=== PATIENT | male | born 1945 | race Caucasian/White ===

== ENCOUNTER → 2016-03-14 | Day surgery (SDC) | payer BC ==
--- NOTE | 2016-03-01 09:05 | PAT Medication Instructions ---
Service Date Mar 01, 2016. Current Home Medication List Alprazolam (Alprazolam), 0.5 MG PO QPM PRN for RN Aspirin Enteric Coated (Ecotrin Or Generic *), 81 MG PO QPM Atorvastatin (Lipitor), 80 MG PO QAM Cholecalciferol (Vitamin D3), 1 TAB PO DAILY Clopidogrel (Plavix), 75 MG PO QAM Coenzyme Q10 (Ubidecarenone) (Co Q-10), 1 CAP PO QAM Finasteride (Proscar), 5 MG PO QAM Fish Oil (Auburn-3), 2 CAP PO QAM Nfhxbmbuuuq-Wfdtuiwyxtm-Ymp C- (Glucosamine Chondroitin), 2 TAB PO QAM Hctz/Spironolactone 25MG/25MG (Aldactazide 25MG/25MG), 1 TAB PO QAM Lifitegrast (Xiidra), 1 DROP OPB QAM Magnesium (Magnesium), 1 TAB PO DAILY Mometasone Furoate (Nasonex), 1 SPRAY NA PRN Naproxen (Aleve), 40 MG PO QAM Nebivolol Hcl (Bystolic), 5 MG PO BID Pantoprazole (Protonix), 40 MG PO QAM Tadalafil (Cialis), 5 MG PEG QPM Testosterone (Androgel), 1 DOSE TOP BID Valsartan (Diovan), 80 MG PO QAM Medication Instructions For Your Scheduled Surgery Aspirin Enteric Coated (Ecotrin Or Generic *), 81 MG PO QPM (surgeon should call you with instructions) Clopidogrel (Plavix), 75 MG PO QAM (stop 7 days prior to surgery per surgeon instructions) - Hold the following medications 10 days prior to surgery: Fish Oil (Auburn-3), 2 CAP PO QAM Yiqsbyirwrx-Dputiplhyky-Dun C- (Glucosamine Chondroitin), 2 TAB PO QAM Coenzyme Q10 (Ubidecarenone) (Co Q-10), 1 CAP PO QAM - Hold the following medications the morning of surgery: Valsartan (Diovan), 80 MG PO QAM Testosterone (Androgel), 1 DOSE TOP BID Hctz/Spironolactone 25MG/25MG (Aldactazide 25MG/25MG), 1 TAB PO QAM Naproxen (Aleve), 40 MG PO QAM (not told to stop by surgeon) Vitamin D Magnesium - Take the following medications the morning of surgery with a sip of water: Pantoprazole (Protonix), 40 MG PO QAM Nebivolol Hcl (Bystolic), 5 MG PO BID Mometasone Furoate (Nasonex), 1 SPRAY NA PRN (if needed) Atorvastatin (Lipitor), 80 MG PO QAM Finasteride (Proscar), 5 MG PO QAM Lifitegrast (Xiidra), 1 DROP OPB QAM - Take the following medications as scheduled the night before surgery: Testosterone (Androgel), 1 DOSE TOP BID Tadalafil (Cialis), 5 MG PEG QPM Nebivolol Hcl (Bystolic), 5 MG PO BID Alprazolam (Alprazolam), 0.5 MG PO QPM PRN for RN If you have any questions please call us at [phone] or [phone] ( [place]) or [phone]
[2016-03-01 09:34] LABS: BASO % 0.5 %; BASO ABS # 0.03 K/uL (0-0.2); COMPLETE YES; EOS % 2.2 %; HEMATOCRIT 42.7 % (42-52); IG% 0.2 %; LYMPH % 20.9 %; LYMPH ABS # 1.26 K/uL (1.2-3.4); MEAN CELL VOLUME 88.6 fL (80-100); MEAN CORPUSCULAR HEMOGLOBIN 31.5 pg (25-34); MEAN CORPUSCULAR HGB CONC 35.6 g/dl (32-36); MEAN PLATELET VOLUME 9.4 fL (7.4-10.4); NEUT % 69.2 %; PLATELET COUNT 112 K/uL (130-400); RED BLOOD COUNT 4.82 M/uL (4.7-6.1); WHITE BLOOD COUNT 6.04 K/uL (4.8-10.8)
[2016-03-01 09:43] LABS: INR 1.1 (0.9-1.1); PROTHROMBIN TIME (PATIENT) 11.4 SECONDS (9.0-12.0)
[2016-03-01 09:58] LABS: BUN/CREATININE RATIO 16.7 (10-20); CALCIUM 8.8 mg/dl (8.5-10.1); CREATININE 1.8 mg/dl (0.60-1.40); POTASSIUM 4.6 mmol/L (3.5-5.1)
[~2016-03-14] VITALS: Ht 180.3 cm; Wt 99.9 kg
[~2016-03-14] MED LIST: ANDG TOP; ASPEC81 PO; ATOR-26 PO; ATROPINE SULFATE 0.1 MG/ML 5ML SYR IV PRN; BUPIVACAINE/EPINEPHRINE 0.5% MPF 1:200,000 30 ML VIAL INJ ONE; CEFAZOLIN 2000 MG/60 ML D5W IV SCH; CHOL1000 PO; CLOP1TAB15 PO; COEN75CA PO; DEXAMETHASONE SOD INJ 4 MG/ML VIAL ONE; DVN80 PO; EpHEDrine SULFATE INJ 50 MG/ML AMP IV PRN; FENTANYL CITRATE INJ 50 MCG/1 ML 2 ML VIAL IV PRN; FENTANYL CITRATE INJ 50 MCG/1 ML 2 ML VIAL ONE; FINA5TAB PO; GLUCTAB7 PO; HEPARIN SOD 5000 UNIT/0.5 ML CARP SQ SCH; HYDR-5688 PO; HYDROCODONE/ACETAMOPHEN 5/325MG TAB PO PRN; LACTATED RINGER'S 1000ML 1,000 ML IV SCH; LIDOCAINE HCL 2% 2 ML VIAL (20MG/ML) ONE; LIFI5DRO OPB; MAGN250T9 PO; MIDAZOLAM HCL 1 MG/ML 2ML VIAL ONE; MOME50SP5; MoRPHine SULFATE 10 MG/ML CARP/VIAL IV PRN; MoRPHine SULFATE 4 MG/ML 1 ML CARP\\VIAL IV PRN; NAPR1TAB9 PO; NEBI10TA2 PO; OMEG10007 PO; ONDANSETRON INJ 2 MG/ML 2 ML VIAL IV PRN; ONDANSETRON INJ 2 MG/ML 2 ML VIAL ONE; PANT40TA PO; PROPOFOL IV EMULSION 10 MG/ML 20 ML VIAL IV ONE; SODIUM CHLORIDE 0.9% 1000ML 1,000 ML IV SCH; SPIR50TA PO; TADA10TA PEG; XNX5 PO
[2016-03-14 08:05] VITALS: BP 159/93; PULSE 68; TEMP 37; O2SAT 97; Ht 180.3 cm; Wt 99.9 kg
--- NOTE | 2016-03-14 09:24 | History & Physical Bridge Note ---
H&P Re-Evaluation Bridge Note: I have examined the patient, reviewed the History & Physical and in the interval since the performance of the History & Physical I have noted the following changes of clinical significance: No changes noted
--- NOTE | 2016-03-14 09:29 | Discharge Instructions ---
Discharge Instructions Admission Reason for Admission: Left Inguinal Hernia Discharge Discharge Diagnosis / Problem: left inguinal hernia Discharge Goals Goal(s): Decrease discomfort, Improve function Activity Recommendations Activity Limitations: as noted below Lifting Limitations: no more than 10 pounds Exercise/Sports Limitations: until after follow-up appointment May Resume Sexual Activity: after follow-up appointment Shower/Bathe: tomorrow . Instructions / Follow-Up Instructions / Follow-Up f/u Dr. Bruce in 1-2 weeks. Current Hospital Diet Patient's current hospital diet: Discharge Diet Recommended Diet: Regular Diet Pending Studies Studies pending at discharge: no Laboratory Results Hemoglobin A1c Test 12/21/15 10:03 Range/Units Estimated Average Glucose 114 mg/dl Hemoglobin A1c 5.6 4.5-5.6 % Medical Emergencies . Who to Call and When: Medical Emergencies: If at any time you feel your situation is an emergency, please call 911 immediately. . Non-Emergent Contact Non-Emergency issues call your: Primary Care Provider, Surgeon Call Non-Emergent contact if: temperature is above 101, wound has increased drainage, wound has increased redness, wound has increased pain . "Provider Documentation" section prepared by Michele Bruce. VTE Core Measure Inpt VTE Proph given/why not?: Unfractionated heparin SQ, SCD's
--- NOTE | 2016-03-14 11:29 | Discharge Instructions ---
Discharge Instructions Admission Reason for Admission: Left Inguinal Hernia Discharge Discharge Diagnosis / Problem: left inguinal hernia Discharge Goals Goal(s): Decrease discomfort, Improve function Activity Recommendations Activity Limitations: as noted below Lifting Limitations: no more than 10 pounds Exercise/Sports Limitations: until after follow-up appointment May Resume Sexual Activity: after follow-up appointment f/u dr. bruce in 1-2 weeks. . Current Hospital Diet Patient's current hospital diet: Discharge Diet Recommended Diet: Regular Diet Procedures Procedures Performed: Left Open Inguinal Hernia Repair with Mesh Pending Studies Studies pending at discharge: no Laboratory Results Hemoglobin A1c Test 12/21/15 10:03 Range/Units Estimated Average Glucose 114 mg/dl Hemoglobin A1c 5.6 4.5-5.6 % Medical Emergencies . Who to Call and When: Medical Emergencies: If at any time you feel your situation is an emergency, please call 911 immediately. . Non-Emergent Contact Non-Emergency issues call your: Primary Care Provider, Surgeon Call Non-Emergent contact if: temperature is above 101, wound has increased drainage, wound has increased redness, wound has increased pain . "Provider Documentation" section prepared by Michele Bruce. VTE Core Measure Inpt VTE Proph given/why not?: Unfractionated heparin SQ, SCD's
--- NOTE | 2016-03-14 11:30 | Medical Student: [facility] ---
Immediate Operative Summary Operative Date Mar 14, 2016. Pre-Operative Diagnosis Left-sided inguinal hernia Post-Operative Diagnosis Same Procedure(s) Performed Zach tension-free mesh repair of left-sided inguinal hernia Surgeon Michele Bruce DO [employer] Surgeon(s) None Estimated Blood Loss 20mL Findings Left-sided direct and indirect inguinal hernias Specimens None Drains 200mL via Campbell catheter Anesthesia General anesthesia via laryngeal mask airway Complication(s) None Disposition Recovery Room / PACU
--- NOTE | 2016-03-14 11:30 | [facility] Operative Report ---
Operative Report Operative Date Mar 14, 2016. Pre-Operative Diagnosis Left Inguinal Hernia Post-Operative Diagnosis left direct and indirect inguinal hernia Surgeon Dr Bruce Estimated Blood Loss 20ML Findings direct and indirect left inguinal hernias Specimens None Complication(s) None Disposition Recovery Room / PACU I attest to the content of the Intraoperative Record and any orders documented therein. Any exceptions are noted below.
--- NOTE | 2016-03-14 11:51 | OPERATIVE REPORT ---
DATE OF OPERATION: 03/14/2016 PREOPERATIVE DIAGNOSIS: Left inguinal hernia. POSTOPERATIVE DIAGNOSIS: Direct and indirect left inguinal hernia. PROCEDURE: Open left inguinal hernia repair with mesh. SURGEON: Dr. Bruce. ESTIMATED BLOOD LOSS: Approximately 20 mL. COMPLICATIONS: No immediate. ANESTHESIA: General. The patient tolerated the procedure well. OPERATIVE NOTE: After informed consent was obtained, the patient was taken to the operating suite and placed in supine position. After successful intubation a Campbell catheter was placed. The lower abdomen was shaved and sterilely prepped and draped in usual fashion. A left inguinal incision was made with a 15 blade scalpel and carried down through the soft tissue using electrocautery. The external oblique aponeurosis was skeletonized and incised with a fresh blade. It was extended distally through the external ring with Metzenbaum scissors as well as for several centimeters proximally. Blunt finger dissection was used to free the cord and cord structures from surrounding structures. We were able to elevate it off the pubic bone and place a Easton around it. We noted immediately there was a direct bulge in the floor of the inguinal canal. We also inspected the cord and cord structures and there was a large chronic indirect inguinal hernia as well. We were able to use primarily blunt dissection, a small amount of electrocautery to tease the hernia sac off the cord and cord structures. Once we had it down to its neck we were able to easily dunk it back into the abdominal cavity where it stayed on its own. We then thoroughly irrigated the wound. A piece of polypropylene ann holed mesh was placed as an onlay. It was secured distally to Bill's ligament laterally along the shelving portion of Poupart's ligament and medially along the midline musculature. The "arms" of the mesh were wrapped around behind the cord and cord structures and secured to underlying muscle as well. All the sutures were placed using 0 Nurolon. There was adequate hemostasis at the end of the procedure. Final irrigation was performed. Some Marcaine was injected around the edges of the mesh for postoperative analgesia. The mesh did not appear to be impinging on the cord and was laying in a nice tension free manner. After irrigation, we closed the external oblique aponeurosis with 2-0 Vicryl in a running fashion. Soft tissue was irrigated and closed using 3-0 Vicryl and 4-0 Monocryl. Some additional Marcaine was then placed around the skin incision and then Dermabond glue used as a dressing. The patient was awakened, extubated, and transferred to recovery in stable condition. I attest to the content of the Intraoperative Record and any orders documented therein. Any exceptio ns are noted below.
[2016-03-14 12:00] VITALS: BP 133/72; PULSE 69; TEMP 36.4; O2SAT 100
[2016-03-14 12:30] VITALS: BP 132/88; PULSE 75; O2SAT 98
--- NOTE | 2016-03-14 12:44 | Anesthesiology Progress Note ---
Anesthesia Post Op Note Date & Time Mar 14, 2016 at 12:44 Vital Signs Pain Intensity: 0 Vital Signs Past 12 Hours Date Time Temp Pulse Resp B/P Pulse Ox O2 Delivery O2 Flow Rate FiO2 03/14/16 12:30 75 18 132/88 98 Room Air 03/14/16 12:00 36.4 69 16 133/72 100 Room Air 03/14/16 11:54 36.1 03/14/16 11:45 66 18 142/83 100 Mask 10 03/14/16 11:35 76 18 139/88 100 Mask 10 03/14/16 11:25 76 18 130/75 100 Mask 10 03/14/16 11:17 36.5 79 18 150/76 100 Mask 10 03/14/16 08:05 37 68 18 159/93 97 Room Air Notes Mental Status: alert / awake / arousable, participated in evaluation Pt Amnestic to Procedure: Yes Nausea / Vomiting: adequately controlled Pain: adequately controlled Airway Patency, RR, SpO2: stable & adequate BP & HR: stable & adequate Hydration State: stable & adequate Anesthetic Complications: no major complications apparent
[2016-03-14 12:58] VITALS: BP 142/83; PULSE 79; TEMP 36.4; O2SAT 96
== END | disposition home or self-care (01) ==
LOC: C.ACU 07:34
PROVIDERS: ATTEND Surgery
DX: K40.90 Unilateral inguinal hernia, without obstruction or gangrene, not specified as recurrent (principal); K21.9 Gastro-esophageal reflux disease without esophagitis; I25.10 Atherosclerotic heart disease of native coronary artery without angina pectoris; I25.2 Old myocardial infarction; E78.00 Pure hypercholesterolemia, unspecified; M51.06 Intervertebral disc disorders with myelopathy, lumbar region; M19.90 Unspecified osteoarthritis, unspecified site; N18.9 Chronic kidney disease, unspecified; I12.0 Hypertensive chronic kidney disease with stage 5 chronic kidney disease or end stage renal disease; Z95.5 Presence of coronary angioplasty implant and graft

== ENCOUNTER → 2016-06-13 | Outpatient (CLI) | payer BC ==
[~2016-06-13] MED LIST changes: -ATROPINE SULFATE 0.1 MG/ML 5ML SYR IV PRN; -BUPIVACAINE/EPINEPHRINE 0.5% MPF 1:200,000 30 ML VIAL INJ ONE; -CEFAZOLIN 2000 MG/60 ML D5W IV SCH; -DEXAMETHASONE SOD INJ 4 MG/ML VIAL ONE; -EpHEDrine SULFATE INJ 50 MG/ML AMP IV PRN; -FENTANYL CITRATE INJ 50 MCG/1 ML 2 ML VIAL IV PRN; -FENTANYL CITRATE INJ 50 MCG/1 ML 2 ML VIAL ONE; -HEPARIN SOD 5000 UNIT/0.5 ML CARP SQ SCH; -HYDROCODONE/ACETAMOPHEN 5/325MG TAB PO PRN; -LACTATED RINGER'S 1000ML 1,000 ML IV SCH; -LIDOCAINE HCL 2% 2 ML VIAL (20MG/ML) ONE; -MIDAZOLAM HCL 1 MG/ML 2ML VIAL ONE; -MoRPHine SULFATE 10 MG/ML CARP/VIAL IV PRN; -MoRPHine SULFATE 4 MG/ML 1 ML CARP\\VIAL IV PRN; -ONDANSETRON INJ 2 MG/ML 2 ML VIAL IV PRN; -ONDANSETRON INJ 2 MG/ML 2 ML VIAL ONE; -PROPOFOL IV EMULSION 10 MG/ML 20 ML VIAL IV ONE; -SODIUM CHLORIDE 0.9% 1000ML 1,000 ML IV SCH
[2016-06-13 09:50] LABS: BASO % 0.4 %; BASO ABS # 0.02 K/uL (0-0.2); COMPLETE YES; EOS % 3.5 %; HEMATOCRIT 43.3 % (42-52); IG% 0.2 %; LYMPH % 23.9 %; MEAN CELL VOLUME 91.4 fL (80-100); MEAN CORPUSCULAR HEMOGLOBIN 31.9 pg (25-34); MEAN CORPUSCULAR HGB CONC 34.9 g/dl (32-36); MEAN PLATELET VOLUME 9.5 fL (7.4-10.4); MONO % 9.3 %; NEUT % 62.7 %; PLATELET COUNT 128 K/uL (130-400); RED BLOOD COUNT 4.74 M/uL (4.7-6.1)
[2016-06-13 10:10] LABS: ESTIMATED AVERAGE GLUCOSE 108 mg/dl; HA1C FLAG Normal (Normal)
[2016-06-13 10:54] LABS: ALT/SGPT 30 U/L (12-78); AST/SGOT 29 U/L (15-37); BLOOD UREA NITROGEN 32 mg/dl (7-18); BUN/CREATININE RATIO 16.7 (10-20); CARBON DIOXIDE 25 mmol/L (21-32); CHLORIDE 106 mmol/L (98-107); CHOLESTEROL 125 mg/dl (0-200); GLUCOSE 91 mg/dl (70-99); PHOSPHORUS 2.7 mg/dl (2.5-4.9); POTASSIUM 4.8 mmol/L (3.5-5.1); SODIUM 140 mmol/L (136-145); TRIGLYCERIDES 109 mg/dl (0-150); URIC ACID 8.3 mg/dl (2.6-7.2); VERY LOW DENSITY LIPOPROT CALC 22 mg/dl
[2016-06-13 11:03] LABS: ALB/GLOB RATIO 1.4 (0.9-2); ALKALINE PHOSPHATASE 48 U/L (45-117); C-REACTIVE PROTEIN < 0.29 mg/dl (0-0.29); CHOLESTEROL/HDL RATIO 2.9; HDL CHOLESTEROL 43 mg/dl; LDL CHOLESTEROL CALCULATED 60 mg/dl
--- NOTE | 2016-06-20 12:47 | CODING QUERY MEDICAL NECESSITY ---
SUPPORTING DIAGNOSIS NEEDED A supporting diagnosis is required for the test/procedure performed on this patient in order for us to be reimbursed by the patient's insurance. Please provide a supporting diagnosis for the following test/procedure listed below next to the test name along with your signature. *If there is no additional diagnosis for this patient that would support the following test/procedure please document that below next to the test/procedure. Test(s)/Procedure(s) that require a supporting diagnosis: DOS 06/13 * Vitamin D DIAGNOSIS: * Vitamin B12 DIAGNOSIS: * PSA DIAGNOSIS: * Lipids DIAGNOSIS: Provider Signature: Date: Thank you Paulette Cardoza Health Information Management Once completed, please kindly fax back to [phone] For questions please call [phone]
== END | disposition home or self-care (01) ==
LOC: C.LAB 09:05
PROVIDERS: ATTEND Family Medicine
DX: E29.1 Testicular hypofunction (principal); R73.09 Other abnormal glucose; I25.10 Atherosclerotic heart disease of native coronary artery without angina pectoris; E78.00 Pure hypercholesterolemia, unspecified; E55.9 Vitamin D deficiency, unspecified; D56.9 Thalassemia, unspecified; N40.0 Benign prostatic hyperplasia without lower urinary tract symptoms

== ENCOUNTER → 2017-02-01 | Outpatient (CLI) | payer BC ==
[~2017-02-01] MED LIST changes: -HYDR-5688 PO
[2017-02-01 08:07] LABS: BASO % 0.4 %; BASO ABS # 0.02 K/uL (0-0.2); COMPLETE YES; EOS % 3.1 %; HEMATOCRIT 43.5 % (42-52); IG% 0.2 %; LYMPH % 22.6 %; LYMPH ABS # 1.01 K/uL (1.2-3.4); MEAN CORPUSCULAR HEMOGLOBIN 31.5 pg (25-34); MEAN CORPUSCULAR HGB CONC 34.3 g/dl (32-36); MEAN PLATELET VOLUME 9.4 fL (7.4-10.4); MONO % 8.5 %; NEUT % 65.2 %; PLATELET COUNT 134 K/uL (130-400); RED BLOOD COUNT 4.73 M/uL (4.7-6.1); WHITE BLOOD COUNT 4.47 K/uL (4.8-10.8)
[2017-02-01 08:14] LABS: ESTIMATED AVERAGE GLUCOSE 114 mg/dl; HA1C FLAG Normal (Normal)
[2017-02-01 08:39] LABS: ALT/SGPT 38 U/L (12-78); AST/SGOT 32 U/L (15-37); BLOOD UREA NITROGEN 47 mg/dl (7-18); BUN/CREATININE RATIO 24.5 (10-20); CALCIUM 9.1 mg/dl (8.5-10.1); CARBON DIOXIDE 25 mmol/L (21-32); CHLORIDE 106 mmol/L (98-107); CHOLESTEROL 131 mg/dl (0-200); CREATININE 1.93 mg/dl (0.60-1.40); GLUCOSE 93 mg/dl (70-99); POTASSIUM 4.4 mmol/L (3.5-5.1); SODIUM 138 mmol/L (136-145); TRIGLYCERIDES 124 mg/dl (0-150); VERY LOW DENSITY LIPOPROT CALC 25 mg/dl
[2017-02-01 08:49] LABS: ALB/GLOB RATIO 1.5 (0.9-2); ALKALINE PHOSPHATASE 36 U/L (45-117); CHOLESTEROL/HDL RATIO 3.4; HDL CHOLESTEROL 39 mg/dl; LDL CHOLESTEROL CALCULATED 67 mg/dl; TOTAL IRON BINDING CAPACITY 302 mcg/dl (250-450); URIC ACID 7.1 mg/dl (2.6-7.2)
== END | disposition home or self-care (01) ==
LOC: C.LAB 07:21
PROVIDERS: ATTEND Family Medicine
DX: E88.81 Metabolic syndrome and other insulin resistance (principal); E55.9 Vitamin D deficiency, unspecified; D51.9 Vitamin B12 deficiency anemia, unspecified; E78.9 Disorder of lipoprotein metabolism, unspecified; R53.83 Other fatigue

== ENCOUNTER 2020-10-27 04:53 | Observation (INO) ==
--- NOTE | 2020-10-06 14:51 | PAT Medication Instructions ---
Medication Instructions Date of Service October 06, 2020 Home Medications Medication Instructions Recorded nebivolol 10 mg tablet 10 mg PO BID #30 tab 04/05/19 aspirin 81 mg tablet 81 mg PO PM cholecalciferol (vitamin D3) 25 mcg (1,000 unit) tablet 1,000 units PO QAM coenzyme Q10 100 mg capsule 100 mg PO QAM finasteride 5 mg tablet 5 mg PO QAM pantoprazole 40 mg tablet,delayed release 40 mg PO QAM spironolactone 25 mg-hydrochlorothiazide 25 mg tablet 1 tab PO QAM trazodone 50 mg tablet 50 mg PO HS alprazolam 0.5 mg tablet 0.5 mg PO QPM PRN magnesium 250 mg tablet 250 mg PO QAM mometasone 50 mcg/actuation nasal spray (Nasonex) 2 sprays INTNAS DAILY PRN nebivolol 10 mg tablet 10 mg PO BID omega 2-inv-hdt-fish oil 910 mg-1,400 mg capsule (Alcol[place]-3 Fish Oil) 1 cap PO QAM sildenafil 100 mg tablet 100 mg PO ONCE PRN telmisartan 80 mg tablet 80 mg PO QPM acetaminophen 325 mg tablet (Tylenol) 650 mg PO QAM atorvastatin 80 mg tablet 80 mg PO 3XWK testosterone 20.25 mg/1.25 gram (1.62 %) transdermal gel pump 20.25 mg TD BID zinc 25 mg tablet 25 mg PO Q OTHER DAY multivitamin with minerals 1 tab PO QAM turmeric 400 mg capsule 400 mg PO QAM Continue as directed atorvastatin 80 mg tablet 80 mg PO 3XWK STOP taking 2 weeks before surgery (or as soon as possible if surgery is within 2 weeks) coenzyme Q10 100 mg capsule 100 mg PO QAM omega 5-pfk-fzk-fish oil 910 mg-1,400 mg capsule (Alcol[place]-3 Fish Oil) 1 cap PO QAM turmeric 400 mg capsule 400 mg PO QAM STOP taking 24 hours before surgery testosterone 20.25 mg/1.25 gram (1.62 %) transdermal gel pump 20.25 mg TD BID sildenafil 100 mg tablet 100 mg PO ONCE PRN DO NOT take the morning of surgery cholecalciferol (vitamin D3) 25 mcg (1,000 unit) tablet 1,000 units PO QAM spironolactone 25 mg-hydrochlorothiazide 25 mg tablet 1 tab PO QAM magnesium 250 mg tablet 250 mg PO QAM zinc 25 mg tablet 25 mg PO Q OTHER DAY multivitamin with minerals 1 tab PO QAM Take morning of surgery With a small sip of water, OTHERWISE NOTHING TO EAT OR DRINK AFTER MIDNIGHT: finasteride 5 mg tablet 5 mg PO QAM pantoprazole 40 mg tablet,delayed release 40 mg PO QAM alprazolam 0.5 mg tablet 0.5 mg PO QPM PRN (if needed) mometasone 50 mcg/actuation nasal spray (Nasonex) 2 sprays INTNAS DAILY PRN (if needed) nebivolol 10 mg tablet 10 mg PO BID acetaminophen 325 mg tablet (Tylenol) 650 mg PO QAM (okay to take up to 4 hours prior to surgery if needed) Take evening before surgery aspirin 81 mg tablet 81 mg PO PM (continue as normal unless told otherwise by surgeon) trazodone 50 mg tablet 50 mg PO HS alprazolam 0.5 mg tablet 0.5 mg PO QPM PRN (if needed) mometasone 50 mcg/actuation nasal spray (Nasonex) 2 sprays INTNAS DAILY PRN (if needed) nebivolol 10 mg tablet 10 mg PO BID telmisartan 80 mg tablet 80 mg PO QPM Other Notes If you have any questions please call us at [phone] or [phone] or [phone] or [phone]
--- NOTE | 2020-10-11 08:27 | Anesthesiology Consultation ---
Date of Service October 11, 2020 Assessment & Plan (1) Encounter for pre-operative examination: Chart Review Chart Review: Acceptable Risk for Surgery (pending preop Covid testing results and PCP response re: CXR per surgeon's request ) and Patient seen in Pre Admission Testing Per PAT appt on 10/11/20, patient denies any recent travel or large group activities. No known Covid positive contacts or Covid related symptoms. No known Covid infection in the past 90 days. Pt is vaccinated for Covid. Preop Covid testing scheduled 10/25/20 = will await results. Educated on importance of self quarantining, social distancing and wearing mask in public for the patient one week prior to surgery and after Covid testing done Pt last seen by cardio 05/09/20= pt presents for routine follow up. Patient rem ains stable from a cardiac standpoint. He continues to exercise 3-4 times per week at [employer]. This includes weight resistance training and typically 15 minutes on the elliptical maintenance trainer. His exercise tolerance is stable, and he continues to feel well when he exercises. Pt tolerating current medication regiment. Continue current meds as prescribed. Follow up in six months. Teaching & Discussion Pre-Anesthesia Teaching/Discussion Notes: Instructed NPO after midnight before surgery,except medications with 15 cc of water. Medication instructions provided according to the PAT guidelines. History Surgery Operation Date: 10/27/20 08:50 Proposed Procedures p Left Total Knee Arthroplasty - Duane Giang MD Height/Weight Height: 5 ft 11 in Weight: 94.3 kg Allergies Allergy/AdvReac Type Severity Reaction Status Date / Time No Known Allergies Allergy Unknown Verified 10/06/20 13:56 Medications Home Medications Medication Instructions Recorded Confirmed Last Taken aspirin 81 mg tablet 81 mg PO PM tab 09/21/18 10/06/20 Unknown cholecalciferol (vitamin D3) 25 1,000 units PO QAM tab 09/21/18 10/06/20 Unknown mcg (1,000 unit) tablet coenzyme Q10 100 mg capsule 100 mg PO QAM cap 09/21/18 10/06/20 Unknown finasteride 5 mg tablet 5 mg PO QAM tab 09/21/18 10/06/20 Unknown pantoprazole 40 mg tablet,delayed 40 mg PO QAM tab 09/21/18 10/06/20 Unknown release spironolactone 25 1 tab PO QAM #90 tab 09/21/18 10/06/20 Unknown mg-hydrochlorothiazide 25 mg tablet trazodone 50 mg tablet 50 mg PO HS 10/02/18 10/06/20 Unknown alprazolam 0.5 mg tablet 0.5 mg PO QPM PRN tab 04/05/19 10/06/20 Unknown magnesium 250 mg tablet 250 mg PO QAM 04/05/19 10/06/20 Unknown mometasone 50 mcg/actuation nasal 2 sprays INTNAS DAILY PRN 04/05/19 10/06/20 Unknown spray (Nasonex) nebivolol 10 mg tablet 10 mg PO BID #30 tab 04/05/19 10/06/20 Unknown omega 2-rpj-wpy-fish oil 910 1 cap PO QAM cap 04/05/19 10/06/20 Unknown mg-1,400 mg capsule (Victor-3 Fish Oil) sildenafil 100 mg tablet 100 mg PO ONCE PRN tab 04/05/19 10/06/20 Unknown telmisartan 80 mg tablet 80 mg PO QPM tab 04/05/19 10/06/20 Unknown Oxygen Home #1 ea 10/05/19 10/06/20 Unknown acetaminophen 325 mg tablet 650 mg PO QAM tab 10/05/19 10/06/20 Unknown (Tylenol) atorvastatin 80 mg tablet 80 mg PO 3XWK tab 10/05/19 10/06/20 Unknown testosterone 20.25 mg/1.25 gram 20.25 mg TD BID g 05/09/20 10/06/20 Unknown (1.62 %) transdermal gel pump zinc 25 mg tablet 25 mg PO Q OTHER DAY tab 05/09/20 10/06/20 Unknown multivitamin with minerals 1 tab PO QAM 10/06/20 10/06/20 Unknown turmeric 400 mg capsule 400 mg PO QAM 10/06/20 10/06/20 Unknown Wheeled Walker #1 ea 10/12/20 Unknown Wheeled Walker #1 ea 10/12/20 Unknown Past Medical History Medical History (Updated 10/11/20 @ 08:47 by [place] Lindsay PA-C) Anxiety Arthritis BPH (benign prostatic hyperplasia) CAD (coronary artery disease) follows with Dr. Sheikh BMS to LAD 2007 JEANETTE to proximal and distal RCA 03/27/09 CKD (chronic kidney disease) no specialist > PCP monitors Depression Erectile dysfunction GERD (gastroesophageal reflux disease) Well controlled and stable Hyperlipidemia Hypertension Meniere's disease Improved with meds Sleep apnea No CPAP (could not tolerate) > just O2 at 2 LPM at HS Exercise / Class Metabolic Activity II 4-5 Yardwork/Stairs/Walk up hill (one flight of stairs - no chest pain or SOB; elliptical 25 minutes 3 times weekly ) Past Family History Family History Brother Coronary heart disease Unknown Coronary heart disease Father Diabetes Mother Hypertension Family/Other Cancer Grandmother Breast cancer Past Surgical History Surgical History H/O arthroscopy of knee right H/O colonoscopy H/O inguinal hernia repair History of cardiac cath with stents History of carpal tunnel release right History of heart artery stent 1 in 2007 2 in 2009 History of knee replacement right History of tooth extraction S/P lumbar laminectomy Past Anesthesia History No Hx of Anesthesia Complications and No Family Hx of Anesthesia Complications History of PONV No Hx of PONV and No Hx of Motion Sickness Social History Smoking Status: Never smoker Do You Dip or Chew Tobacco: No Hx Alcohol Use: Yes Alcohol type: beer alcohol intake frequency: a few times a week Hx Substance Use: No substance use type: does not use Review of Systems Occ nasal congestion - feels secondary to allergies (has deviated septum)- aggrevated with weather changes- chronic and stable Possible blood transfusion with knee surgery Patient denies chest pain, shortness of breath, dyspnea on exertion, cough, wheezing, palpitations. No hx of seizures, stroke. No hx of blood clots. Physical Exam Vital Signs VITALS BP 157/90 (usually better controlled per patient) P 67 TEMP 98.0 SP02 97% RESP 16 Constitutional no acute distress ENMT Mouth: no TMJ clicking Thyromental Distance: > or= 3.5 Finger Breadths (4.0) Mallampati Class: I Full upper denture Missiing molar on bottom Neck + limited neck extension (moderate ) Respiratory normal respiratory effort; no respiratory distress Auscultation: lungs clear to auscultation bilaterally; no wheezes Cardiovascular Rate/Rhythm: regular rate and regular rhythm Heart Sounds: no murmur Vessels: no carotid bruit Musculoskeletal Spine: no pain with cervical ROM Extremities: extremities normal to inspection Psychiatric Orientation: alert Lab Results Anesthesia Preop Results Results Anesthesia Widget: WBC 5.30 K/uL (4.8-10.8) 10/11/20 Hgb 16.1 g/dL (14.0-18.0) 10/11/20 Hct 44.8 % (42-52) 10/11/20 Plt 142 K/uL (130-400) 10/11/20 Na 134 mmol/L (136-145) L 10/12/20 K 4.5 mmol/L (3.5-5.1) 10/12/20 Cl 101 mmol/L (98-107) 10/12/20 CO2 29 mmol/L (21-32) 10/12/20 BUN 31 mg/dl (7-18) H 10/12/20 Creat 1.71 mg/dl (0.6-1.4) H 10/12/20 Glucose Level 64 mg/dl (70-99) L 10/12/20 PT 10.5 Seconds (9.0-12.0) 10/11/20 PTT 26.1 Seconds (21.0-31.0) 10/11/20 INR 1.0 (0.9-1.1) 10/11/20 Blood Type O Positive 10/11/20 Antibody Screen NEGATIVE 10/11/20 Lab Comments: Elevated creatine stable since at least 2017 Chronic hyponatremia- since 2019 Testing Electrocardiogram Date: 10/11/20 SR with 1st degree AVB at 68 bpm Otherwise normal EKG per cardio Chest X-Ray Date: 10/11/20 Possible trace left pleural effusion. Atelectasis or scarring within left lower lung. Questionable nodular density projecting to the right mid lung region. Might represent pulmonary nodule or related to superimposition of structures. Follow-up evaluation with CT of the chest on nonemergency basis might be considered. Atherosclerosis. Cardiac silhouette is within upper limits of normal. (Surgeon did review CXR and recommended follow up with PCP- will leave to surgeon's discretion on how to proceed pending PCP response)
--- NOTE | 2020-10-21 18:36 | History and Physical Report ---
CHIEF COMPLAINT: Left knee pain. HISTORY OF PRESENT ILLNESS: This is a 75-year-old gentleman who presents for surgical treatment of h is left knee. He has got a long history of knee problems and had his right knee replaced back in 2014. He has done well with this. Over the past several years, he has developed increased pain and discomfort in his left knee. He has been through extensive conservative treatment, which has become less successful over time. He has had various medicines as well as steroid shots and viscosupplement ation. Pain is increased with weightbearing. He cannot walk any significant distance due to his esther n. He would like to have his left knee replaced. PAST MEDICAL HISTORY: Hypertension, chronic renal insufficiency. PAST SURGICAL HISTORY: Includes: 1. Right knee arthroscopy done in 2005. 2. Right knee replaced in July 2014. 3. Back surgery. 4. Cardiac stent placement in 2009. 5. Colonoscopy. ALLERGIES: None. CURRENT MEDICATIONS: Include: 1. Aspirin 81 mg. 2. Micardis. 3. Aldactazide. 4. Bystolic. 5. Lipitor. 6. Protonix. 7. Proscar. 8. AndroGel. 9. Sildenafil. 10. Xanax p.r.n. 11. Nasonex. 12. Fish oil. 13. Coenzyme 14. Tylenol. 15. Magnesium. 16. Vitamin D3. 17. Zinc. SOCIAL HISTORY: A 75-year-old male. Lives with a girlfriend. His is . He does not sm taco. FAMILY HISTORY: Noncontributory. REVIEW OF SYSTEMS: Negative for diabetes, neurologic problem, vascular problem, bleeding disorders. No chest pain or shortness of breath. No history of DVT or PE. No known bleeding problems. PHYSICAL EXAMINATION: GENERAL: Shows a pleasant middle-aged male. Looks to be in good health. Looks younger than stated age. HEENT: Benign. NECK: Supple. No lymphadenopathy. LUNGS: Clear to auscultation. HEART: Regular rate and rhythm. ABDOMEN: Soft, nontender, nondistended. EXTREMITIES: Grossly neurovascularly intact except as follows. Examination of the left knee reveals varus deformity and varus alignment. He has a varus thrust with weightbearing. He has got bony hypertrophy medially. Range of motion is 5 degrees short of full ex tension to 120 degrees of flexion. There is no instability. No pain with hip motion. Examination of the right knee reveals a well-healed incision. Range of motion is 0 to 120. Minimal swelling. X-RAYS: X-rays of the left knee reveal advanced left knee degenerative joint disease. He has got co mplete loss of medial joint space. He has got subchondral sclerosis. He has got osteophytes mediall y after medial femoral condyle and medial tibial plateau. The right knee replacement looks to be in good position without signs of problems. ASSESSMENT: A 75-year-old male with history of hypertension and chronic renal disease 6 years out fr om a right knee replacement with advanced left knee degenerative joint disease. He has failed conser vative treatment, he would like to proceed with left knee replacement. PLAN: We will take him to the operating room and do left total knee replacement. The risks and bene fits of this procedure were explained to the patient include, but not limited to DVT, PE, , infe ction, neurological injury, vascular injury, bleeding problem, pain, limited range of motion, stiffne ss, failure to relieve symptoms, incomplete relief of symptoms, need for further surgery in the futur e, fracture, leg length inequality, nerve palsy, etc. The patient understands and desires to proceed . Informed consent was obtained. As far as discharge plans he is planning to be discharged to home. His girlfriend can assist in his care. He is not planning on any home health. Job ID: [id number]
[2020-10-27] MEDS ORDERED: ceFAZolin 2000MG 2,000 MG/15 ML SYR IV SCH (06:00)
[2020-10-27] MEDS ORDERED: LR 60ML/HR IV SCH (06:00)
[2020-10-27] MEDS ORDERED: GABAPENTIN 300 MG CAP PO SCH (06:00)
[2020-10-27] MEDS ORDERED: TRANEXAMIC ACID 1,000 MG **IV Intra-op IV SCH (06:00)
[2020-10-27] MEDS ORDERED: BUPIVACAINE LIPOSOME/PF 266 MG, BUPIVACAINE/EPINEPHRINE 50 ML, SODIUM CHLORIDE 0.9% 30 ... INFIL SCH (06:00)
[2020-10-27] MEDS ORDERED: METOCLOPRAMIDE HCL 10 MG TABLET PO SCH (06:00)
[2020-10-27] MEDS ORDERED: FAMOTIDINE 20 MG TAB PO SCH (06:00)
[2020-10-27] MEDS ORDERED: LR 500ML BOLUS, THEN 15ML/HR IV SCH (06:00)
[2020-10-27] MEDS ORDERED: ACETAMINOPHEN 500 MG TAB PO SCH (06:00)
[2020-10-27] MEDS ORDERED: ROPIVACAINE 0.5% 5 MG/ML 30 ML VIAL ONE (06:30)
[2020-10-27] MEDS ORDERED: BUPIVACAINE 0.5 % 5 MG/1 ML PF 10ML VIAL ONE (06:30)
[2020-10-27] MEDS ORDERED: fentaNYL citrate 100 MCG/2 ML VIAL ONE (06:37)
[2020-10-27] MEDS ORDERED: MIDAZOLAM HCL 1 MG/ML 2ML VIAL ONE (06:37)
[2020-10-27] MEDS ORDERED: ATROPINE SULFATE 0.1 MG/ML 10ML SYR IV PRN (06:43)
[2020-10-27] MEDS ORDERED: HYDROmorphone INJ 1 MG/ML SYRINGE IV PRN (06:43)
[2020-10-27] MEDS ORDERED: ONDANSETRON INJ 2 MG/ML 2 ML VIAL IV PRN ×2 (06:43→11:08)
[2020-10-27] MEDS ORDERED: EPINEPHrine INJ 1 MG/ML AMP ONE (06:43)
[2020-10-27] MEDS ORDERED: ePHEDrine sulfate 50 MG/ML AMP IV PRN (06:43)
[2020-10-27] MEDS ORDERED: BUPIVACAINE 0.25% 30 ML VIAL ONE (06:43)
[2020-10-27] MEDS ORDERED: SODIUM CHLORIDE 0.9% PF 50 ML VIAL ONE (06:43)
[2020-10-27] MEDS ORDERED: BUPIVACAINE LIPOSOME 1.3% 266 MG/20 ML VIAL ONE (06:43)
--- NOTE | 2020-10-27 06:56 | History & Physical Bridge Note ---
Date of Service October 27, 2020 History & Physical Bridge Note I have examined the patient, reviewed the History & Physical and in the interval since the performance of the History & Physical I have noted the following changes of clinical significance: no changes noted
[2020-10-27] MEDS ORDERED: PROPOFOL IV EMULSION 10 MG/ML 20 ML VIAL IV ONE (08:30)
--- NOTE | 2020-10-27 09:16 | Operative Report ---
Post Operative Report Pre & Post Diagnosis Operation Date: 10/27/20 07:00 Pre-Op Diagnosis: Left Knee Osteoarthritis Post-Op Diagnosis: Left Knee Osteoarthritis I identified the patient and participated in the time-out.: Yes Procedure Operation Date: 10/27/20 07:00 Actual Procedures p Left Total Knee Replacement(Left) - Duane Giang MD Surgeon Duane Giang MD Dietetic Intern Casey Chang PA-C Estimated Blood Loss 50 Findings Consistent with Post-Op Diagnosis Operative findings were advanced left knee DJD. Extensive grade 4 [id number] disease and eburnation of the medial compartment as well as the patellofemoral compartment. Varus deformity to his knee with a slight flexion contracture. Osteophytes primarily medially and posterior medially. Fluids 2000 cc Specimens Left knee sent for pathology. Drains None Anesthesia Type Spinal MAC Complications none Disposition Accompanied Patient To Recovery: No Indications Patient is 75-year-old gentleman is had a long history of knee problems. He underwent a right knee replaced about 6 years ago. Over the past several years he developed increased pain discomfort in his left knee. He has been through extensive conservative management which became less successful over time. He elected proceed with left total knee arthroplasty. Description of Procedure Operative implants consisted of: 1 Biomet Vanguard size 70 left posterior stabilized femoral component. 2. Biomet size 79 tibial tray. 3. 10 mm posterior stabilized polyethylene insert. 4. 34 x 8 and half all polypatella. The patient was taken to the operating, identified, and placed on the operating table supine position. Contractors were properly padded. IV antibiotics tried by anesthesia team. Spinal anesthetic and abductor canal block had provided in the holding area. Campbell catheter was placed in sterile fashion. Left thigh tip was then placed in left lower extremities and prepped draped in usual sterile fashion. The left leg was elevated exsanguinated with use of an Esmarch interspace at 300 mmHg. An anterior posterior left knee was then performed through longitudinal incision centered over the patella. Sharp dissection was carried through subcutaneous this down the extensor mechanism. Medial parapatellar arthrotomy incision was made. Some subperiosteal dissection was carried out medially but the fat pad was resected from each patella tendon. Lateral patellofemoral ligament was released. The patella subluxated laterally and the knee was flexed. The osteophytes taken off distal femur. The ACL and PCL were then released from distal femur the tibia subluxated anteriorly. External tibial alignment jig was then placed in the interface the tibia and adjusted 16 mm medially. Proximal tibial cut was made remove about a millimeter bone at most from the most deficient aspect of the medial tibial plateau. Some osteophytes taken off medial and posterior medially. The tibia was sized to a size 79. Attention drawn the femur. The distal femur was entered with a sharp drill. Intramedullary canal was white ction. A right 6 degree valgus cutting guide was placed. The distal femoral cutting block was pinned in place but distal femoral cut was made to take an additional 3 mm of bone off distal femur. The femur was then sized to a size 70. The AP cutting block was pinned parallel to the epicondylar axis which was 5 degrees of external rotation. Anterior cut, anterior chamfer, posterior cut, posterior chamfer cuts were made. The box cutting guide was placed in just slight lateral box cut was made. The knee was flexed. The remnants of medial lateral menisci were excised. The osteophytes were taken off the posterior aspect of femur. A trial femoral component was placed. The tibial tray was pinned in maximum external rotation and the drill and stem punch were used to create defect in proximal tibia for the tibial tray. The knee was then trialed and the 10 mm insert fit most appropriately. Attention drawn the patella. Nupathe the patella was cleaned of all soft tissue. Patella thickness measured 22 mm in thickness was cut down to 14. Was sized to a size 34 patella. The lug holes for the 34 patella but then drilled. The lateral osteophyte was removed. Patella button was placed. Knee was taken through range of motion patella tracked nicely with no thumbs test. Attention drawn to placing permanent components. All trial components were removed. A bone plug was placed into the distal femur limit blood loss. Double batch Palacos G cement was mixed. A Biomet Vanguard size 70 left posterior stabilized femoral component, size 79 tibial tray, 10 mm posterior stabilized polyethylene insert, and a 34 x 8 and half all polypatella then cemented in place. Knee was brought out in full extension total cement hardened. Final cement check was then performed. Pericapsular tissues were injected with total of 100 cc of combination of 20 cc of Exparel, 30 cc normal saline, 50 cc of quarter percent Marcaine with epinephrine. Patient did receive 1 g tranexamic acid. The tourniquet was let down for turn time 67 minutes. Hemostasis assured with electrocautery. Extensor mechanism closed with combination 1 PDS suture #1 Vicryl suture in [id number] fashion. Extensor mechanism checked found to be intact with subcutaneous tissue then closed with 2 Dexon suture in a buried interrupted fashion skin was closed skin jeremias. Legs then cleaned dried and sterile dressing both Xeroform, 4 x 4's, sterile cast padding, Oral bandage were applied. Patient transferred to the recovery room in stable condition. The patient tolerated procedure well and there were no compl ications. Casey Chang, my physician zoning assistant, was present for the entire procedure. His assistance was essential and required for appropriate patient positioning, prepping and draping, surgical exposure, performing the technical details of the operation, placement the implants, closure of the wound, and placement of the sterile bandage. I attest to the content of the Intraoperative Record and any orders documented therein. Any exceptions are noted below.
--- NOTE | 2020-10-27 09:23 | XRay Report ---
TWO VIEWS LEFT KNEE CLINICAL HISTORY: Postoperative examination. FINDINGS: AP and crosstable lateral portable views of the left knee are obtained. A left knee arthrop lasty is in near anatomic alignment. There has been undersurface remodeling of the patella. No acute fracture is seen. There are expected postoperative changes around the knee including skin clips, a white rgical drain, soft tissue edema, and subcutaneous gas. There is atherosclerotic calcification of the popliteal artery. IMPRESSION: Expected postoperative changes status post left knee arthroplasty. No acute fracture is s een. ACT 112: Negative or not required by law. Electronically signed by: Garfield Domingo M.D. 10/27/2020 9:22 AM
--- NOTE | 2020-10-27 10:04 | Anesthesiology Progress Note ---
Date of Service October 27, 2020 Anesthesia Post Procedure Vital Signs Vital Signs: Temp Pulse Pulse Resp BP Pulse Ox 10/27/20 09:55 36.1 C L 61 13 133/84 97 10/27/20 09:45 59 L 12 145/84 H 100 10/27/20 09:35 58 L 12 137/84 100 10/27/20 09:25 59 L 12 144/83 H 100 10/27/20 09:15 62 12 141/87 H 100 10/27/20 09:08 36.0 C L 65 12 128/78 97 10/27/20 05:22 36.7 C 68 18 160/93 H 98 Pain Intensity Left Knee: Pain Intensity: 0 Transfer of Care Handoff Completed per policy Notes Mental Status: alert / awake / arousable Patient Amnestic to Procedure: Yes Nausea / Vomiting: adequately controlled Pain: adequately controlled Airway Patency, RR, SpO2: stable & adequate BP & HR: stable & adequate Hydration State: stable & adequate Anesthetic Complications: no major complications apparent
[2020-10-27] MEDS ORDERED: NALOXONE HCL 0.4 MG/1 ML VIAL/CARP IV PRN (11:08)
[2020-10-27] MEDS ORDERED: ALPRAZolam 0.5 MG TABLET PO PRN (11:08)
[2020-10-27] MEDS ORDERED: bisacodyL 10 MG SUPP PR PRN (11:08)
[2020-10-27] MEDS ORDERED: TAMSULOSIN HCL 0.4 MG CAP PO PRN (11:08)
[2020-10-27] MEDS ORDERED: NON-FORMULARY MEDICATION (Sildenafil 100 mg tablet) PO PRN (11:08)
[2020-10-27] MEDS ORDERED: METOCLOPRAMIDE HCL INJ 5 MG/ML 2 ML VIAL IV PRN (11:08)
[2020-10-27] MEDS ORDERED: traMADol HCL 50 MG TABLET PO PRN (11:08)
[2020-10-27] MEDS ORDERED: MAGNESIUM HYDROXIDE SUSP 30 ML UDC PO PRN (11:08)
[2020-10-27] MEDS ORDERED: ALUMINUM/MAGNESIUM SUSP 30 ML UDC PO PRN (11:08)
[2020-10-27] MEDS ORDERED: NON-FORMULARY MEDICATION (Oxygen Home Liters per Minute) SCH (11:08)
[2020-10-27] MEDS ORDERED: FLUTICASONE PROPIONATE NA SPR 16 GM BTL PRN (11:35)
[2020-10-27] MEDS: SODIUM CHLORIDE 0.9% 1000ML 1,000 ML IV SCH ×2 (11:58→21:41)
[2020-10-27] MEDS: KETOROLAC TROMETHAMINE 15 MG/ML VIAL IV SCH ×3 (12:00→23:00)
--- NOTE | 2020-10-27 12:29 | Progress Notes ---
DATE OF NOTE: 10/27/2020. SUBJECTIVE: A 75-year-old gentleman postop from a left knee replacement. He is doing pretty well. Really not having any pain yet. The feeling is just starting to come back to the legs. No chest esther n or shortness of breath. Not feeling dizzy or lightheaded. OBJECTIVE: VITAL SIGNS: Temperature 36.5. Vital signs are stable. GENERAL: Physical examination shows a pleasant middle-aged male. He is sitting up on bed, looks pre tty comfortable. LUNGS: Clear to auscultation. HEART: Regular rate and rhythm. ABDOMEN: Soft, nontender, nondistended. EXTREMITIES: Grossly neurovascularly intact except as follows. Examination of the left lower extremity reveals the leg to be well aligned. Dressings clean, dry and intact. He does not have any significant motor function of his leg yet. He has got brisk refill wi th good distal pulses. X-RAYS: X-rays of the left knee from recovery room are reviewed. Shows a left cemented posterior st abilized total knee arthroplasty. Components looked to be in good position. No signs of problems. ASSESSMENT: A 75-year-old gentleman, postoperative from a left knee replacement, doing well. Pain i s controlled. These nerve function is just returning. PLAN: 1. DVT prophylaxis include thigh-high TEDs, SCDs, and aspirin twice a day. 2. PT, OT, weightbear as tolerated. Left total knee protocol. 3. Pain control, doing okay with current pain regimen. 4. IV antibiotics x24 hours. 5. Disposition: Plan to discharge to home. He is going to do outpatient therapy later. Job ID: [id number]
[2020-10-27] MEDS ORDERED: ATORVASTATIN 40 MG TAB PO SCH (12:30)
[2020-10-27] MEDS: ZINC SULFATE 220 MG CAPSULE PO SCH (12:41)
[2020-10-27] MEDS: ACETAMINOPHEN 500 MG TAB PO SCH ×2 (15:02→20:50)
[2020-10-27] MEDS: ceFAZolin 2000MG 2,000 MG/15 ML SYR IV SCH ×2 (15:03→22:52)
[2020-10-27] MEDS ORDERED: TRANEXAMIC ACID / 0.7% NACL 1,000 MG/100 ML BAG IV SCH (15:15)
[2020-10-27] MEDS ORDERED: diazePAM 5 MG TABLET PO ONE (15:35)
[2020-10-27] MEDS ORDERED: diazePAM 5 MG TABLET ONE (15:39)
[2020-10-27] MEDS ORDERED: MAGNESIUM SULFATE / D5W 1 GM/100 ML BAG IV ONE (16:00)
[2020-10-27] MEDS: ASCORBIC ACID 500 MG TAB PO SCH (17:25)
--- NOTE | 2020-10-27 19:02 | Hospitalist Progress Note ---
Date of Service October 27, 2020 Assessment & Plan (1) Muscle spasm: Plan: Gave Valium and 2 g of mag at time of code purple. Seem to help with symptoms for a while, but it sounds like symptoms of crept back up. He is currently on scheduled acetaminophen and Toradol (see below under CKD)we will add morphine, topical diclofenac, more magnesium (2) Stage III chronic kidney disease: Plan: Basic metabolic panel ordered. If his creatinine is higher than baseline, would hold the Toradol. For now we will hold his hydrochlorothiazide, spironolactone, and telmisartanmostly so that we can have a degree of "wiggle room" in order to utilize the Toradol given that he is hurting so much right now. Follow closely. (3) Hypertension: Plan: Right now blood pressure is somewhat uncontrolled which is unsurprising given his degree of pain. Follow. (4) Arteriosclerotic coronary artery disease: Plan: Asymptomatic. Some home meds on hold as it relates to ENT inflammatory and CKD as abovebut will resume as soon as possible. Otherwise continue home meds. Admission and Anticipated Discharge Date Admission Date: October 27, 2020 Subjective Responded to code purple. Later asked to see in formal consultation. Patient here post knee surgery. Code fred was called due to appearance of altered mental status that with hindsight was really just due to intense pain. Patient noticed intense left thigh pain that was very spastic. It would come and go in waves, whenever would happen it was essentially uncontrollable pain, and then it would go away. Nothing is happened like this before, just seems to be happening since the surgery. Otherwise he feels okay, no chest pain no shortness of breath, mental status intact. Review of Systems Review of Systems: All systems reviewed & are unremarkable except as noted in HPI & below Physical Exam Physical Exam: In general he is awake and alert currently no distress, but appears that he was just in a lot of pain. HEENT normocephalic atraumatic mucous membranes moist. Breathing unlabored no accessory muscle use good effort. Skin shows no rashes no pallor or icterus. Neuro without focal deficits. Left leg dressed in an Oral wrap, lateral musculature somewhat high in tone, decreased range of motion not tendertried to do some gentle myofascial release. Patient tolerated well. Results & Data Results & Data ([place]) Vital Signs (Past 12 Hours) Vital Signs Temp Pulse Pulse Resp BP Pulse Ox 10/27/20 15:34 99 H 194/98 H 10/27/20 15:20 73 133/82 98 10/27/20 13:49 99.0 F 66 18 148/88 H 98 10/27/20 13:01 97.7 F 65 16 156/94 H 99 10/27/20 12:01 97.5 F L 60 16 166/96 H 97 10/27/20 11:28 97.7 F 63 16 158/94 H 97 10/27/20 10:55 97.7 F 65 18 138/83 96 10/27/20 10:45 97.3 F L 62 12 131/82 96 10/27/20 10:35 97.3 F L 61 12 133/83 97 10/27/20 10:25 98.6 F 60 12 135/82 98 10/27/20 10:15 96.1 F L 60 16 137/81 95 10/27/20 10:05 60 14 138/78 96 10/27/20 09:55 97.0 F L 61 13 133/84 97 10/27/20 09:45 59 L 12 145/84 H 100 10/27/20 09:35 58 L 12 137/84 100 10/27/20 09:25 59 L 12 144/83 H 100 10/27/20 09:15 62 12 141/87 H 100 10/27/20 09:08 96.8 F L 65 12 128/78 97 PG Care Time/CCT Total # of Minutes Spent Total Time Spent with Patient: Total time spent is greater than 50% in coordination of care (as documented) at patient's floor/unit and/or counseling patient: Coding Level of Care Code 00409 Subseq Hosp Care Lvl 3 Diagnoses Muscle spasm M62.838 Stage III chronic kidney disease N18.3 Hypertension I10 Arteriosclerotic coronary artery disease I25.10
[2020-10-27 19:20] LABS: Basophils # (auto) 0.01 K/uL (0-0.2); Basophils % (auto) 0.1 %; Eosinophils # (auto) 0.02 K/uL (0-0.5); Eosinophils % (auto) 0.2 %; Hematocrit (blood only) 35.8 % (42-52); Hemoglobin 12.8 g/dL (14.0-18.0); Immature Granulocytes # (auto) 0.04 K/uL (0.00-0.02); Immature Granulocytes % (auto) 0.3 %; Lymphocytes # (auto) 0.48 K/uL (1.2-3.4); Lymphocytes % (auto) 4.2 %; Mean Corpuscular Hemoglobin 32.8 pg (25-34); Mean Corpuscular Hgb Conc 35.8 g/dL (32-36); Mean Corpuscular Volume 91.8 fL (80-100); Mean Platelet Volume 9.1 fL (7.4-10.4); Monocytes # (auto) 0.53 K/uL (0.11-0.59); Monocytes % (auto) 4.6 %; Neutrophils % (auto) 90.6 %; Platelet Count 116 K/uL (130-400); RDW Coefficient of Variation 12.2 % (11.5-14.5); RDW Standard Deviation 40.7 fL (36.4-46.3); White Blood Count 11.48 K/uL (4.8-10.8)
[2020-10-27] MEDS: MoRPHine SULFATE 4 MG/ML 1 ML CARP\\VIAL IV PRN (19:37)
[2020-10-27] MEDS: MAGNESIUM SULFATE / D5W 1 GM/100 ML BAG IV SCH ×2 (19:38→21:41)
[2020-10-27 19:40] LABS: BUN Creatinine Ratio 12.6 (10-20); Calcium 8.2 mg/dl (8.5-10.1); Creatinine Clr Calc Pharmacy 28.1 ml/min; Est GFR (African American) 26.8 ml/min; Est GFR (Non-African American) 23.1 ml/min
[2020-10-27] MEDS: DOCUSATE SODIUM 100 MG CAP PO SCH (20:47)
[2020-10-27] MEDS: ASPIRIN 81 MG ECTAB PO SCH (20:47)
[2020-10-27] MEDS: SENNA 8.6 MG TAB PO SCH (20:48)
[2020-10-27] MEDS: traZODone HCL 50 MG TAB PO SCH (20:48)
[2020-10-27] MEDS: DICLOFENAC SOD 1% GEL 100 GM TUBE EXT SCH (20:51)
[2020-10-28] MEDS: MoRPHine SULFATE 4 MG/ML 1 ML CARP\\VIAL IV PRN (03:15)
[2020-10-28] MEDS: ACETAMINOPHEN 500 MG TAB PO SCH ×3 (05:37→21:46)
[2020-10-28 07:12] LABS: Hematocrit (blood only) 31.5 % (42-52); Hemoglobin 11.1 g/dL (14.0-18.0); Mean Corpuscular Hemoglobin 32.6 pg (25-34); Mean Corpuscular Hgb Conc 35.2 g/dL (32-36); Mean Corpuscular Volume 92.4 fL (80-100); RDW Coefficient of Variation 12.2 % (11.5-14.5); RDW Standard Deviation 41.4 fL (36.4-46.3); Red Blood Count 3.41 M/uL (4.7-6.1); White Blood Count 6.93 K/uL (4.8-10.8)
[2020-10-28 07:34] LABS: BUN Creatinine Ratio 16.1 (10-20); Calcium 7.5 mg/dl (8.5-10.1); Creatinine Clr Calc Pharmacy 34.4 ml/min; Est GFR (African American) 34.2 ml/min; Est GFR (Non-African American) 29.5 ml/min; Potassium 4.8 mmol/L (3.5-5.1)
[2020-10-28 07:52] LABS: Mean Platelet Volume 8.9 fL (7.4-10.4); Platelet Count 98 K/uL (130-400)
[2020-10-28 07:53] LABS: Platelet Estimate Decreased (Normal)
[2020-10-28] MEDS ORDERED: dexAMETHasone 10 MG in SYRINGE 0 ML IV SCH (08:00)
[2020-10-28] MEDS: CEROVITE ADV FORMULA TAB PO SCH (08:25)
[2020-10-28] MEDS: ASPIRIN 81 MG ECTAB PO SCH ×2 (08:25→21:44)
[2020-10-28] MEDS: DOCUSATE SODIUM 100 MG CAP PO SCH ×2 (08:25→21:45)
[2020-10-28] MEDS: MAGNESIUM OXIDE 400 MG TAB PO SCH (08:25)
[2020-10-28] MEDS: OMEGA-3 (PURIFIED FISH OIL) 1 GM CAP PO SCH (08:25)
[2020-10-28] MEDS: FINASTERIDE 5 MG TAB PO SCH (08:25)
[2020-10-28] MEDS: PANTOprazole 40 MG TAB PO SCH (08:25)
[2020-10-28] MEDS: METOPROLOL TARTRATE 100 MG TAB PO SCH ×2 (08:25→21:45)
[2020-10-28] MEDS: ASCORBIC ACID 500 MG TAB PO SCH ×2 (08:26→16:53)
[2020-10-28] MEDS: CHOLECALCIFEROL 1,000 UNITS 25 MCG TAB PO SCH (08:26)
[2020-10-28] MEDS: DICLOFENAC SOD 1% GEL 100 GM TUBE EXT SCH ×4 (08:26→21:45)
--- NOTE | 2020-10-28 08:51 | Progress Notes ---
DATE OF NOTE: 10/28/2020. SUBJECTIVE: A 75-year-old gentleman postoperative day 1 from left knee replacement. He is doing wel l this morning. Had a really rough evening last night as he had some muscle spasms and was having tr ouble controlling that. They last for about 10 minutes and then just go away. Feeling well this mor peter. Pain is controlled. He has been walking some. No chest pain or shortness of breath. OBJECTIVE: VITAL SIGNS: Temperature 36.5. Vital signs stable. Slightly hypertensive. GENERAL: Physical exam shows a pleasant elderly male. He is sitting up on bed, looks comfortable th is morning. EXTREMITIES: Examination of the left leg reveals the dressing had a little bit of bloody drainage in the front. Not a lot of swelling. He can dorsiflex and plantarflex his foot appropriately. He can do a good straight leg raise. Good distal pulse. The toes are pink with brisk refill. LABORATORY DATA: Hemoglobin 11.1. Hematocrit 31.5. Electrolytes are stable. He has got some low l evel chronic renal insufficiency with a creatinine 2.10, which is improved from yesterday. ASSESSMENT: A 75-year-old gentleman postoperative day 1 from a left knee replacement, currently doin g well. Had some muscle spasms, unclear etiology, but not super uncommon after recent knee surgery l devi this. Unfortunately, there is not much that is going to control this other than just time. PLAN: 1. DVT prophylaxis include thigh-high TEDs, SCDs, and aspirin twice a day. 2. PT, OT, he can weightbear as tolerated in left lower extremity. 3. Pain control, doing okay with current pain regimen, now for some muscle spasms we will continue c urrent management. Not much to do other than use some ice and pain control. 4. Disposition: He is planning to be discharged to home and do outpatient therapy in the future. Lela begum will see how he does today. I am comfortable sending him home at this point as if something like t his would happen at home I am sure he will be back in the emergency room. We will see how things go today with therapy and his pain control. His muscle spasms. Hopefully, discharge tomorrow. Job ID: [id number]
[2020-10-28] MEDS ORDERED: NON-FORMULARY MEDICATION (Coenzyme Q10 100 mg capsule) PO SCH (09:00)
[2020-10-28] MEDS ORDERED: MULTIVITAMIN TAB PO SCH (09:00)
[2020-10-28] MEDS ORDERED: TELMISARTAN 40 MG TAB PO SCH (09:00)
[2020-10-28] MEDS ORDERED: SPIRONOLACTONE/HCTZ 25-25 PO SCH (09:00)
[2020-10-28] MEDS ORDERED: NON-FORMULARY MEDICATION (Turmeric 400 mg Capsule) PO SCH (09:00)
[2020-10-28] MEDS: LACTATED RINGER'S 1,000 ML IV SCH ×2 (10:12→18:27)
--- NOTE | 2020-10-28 16:33 | Hospitalist Progress Note ---
Date of Service October 28, 2020 Assessment & Plan (1) Muscle spasm: Plan: now improved (2) Stage III chronic kidney disease: Plan: Creatinine a bit higher than baselinealthough lower than last night. Continue to hold hydrochlorothiazide, spironolactone, telmisartan. IV fluids overnight. Repeat basic metabolic panel in the morning. (3) Hypertension: Plan: Asymptomatic elevations, between pain and needing to hold several of his home meds, his rising blood pressure is not at all surprising. Continue to monitor. (4) Arteriosclerotic coronary artery disease: Plan: Asymptomatic. Some home meds on hold Admission and Anticipated Discharge Date Admission Date: October 27, 2020 Subjective Feeling much better than yesterday as far as leg spasms. Pain better controlled. No other new complaints. Review of Systems Review of Systems: All systems reviewed & are unremarkable except as noted in HPI & below Physical Exam Physical Exam: In general he is awake and alert pleasant no distress. HEENT normocephalic atraumatic mucous membranes moist. Breathing unlabored no accessory muscle use good effort. Skin shows no rashes no pallor or icterus. Neuro without focal deficits. Results & Data Results & Data ([facility]) Vital Signs (Past 12 Hours) Vital Signs Temp Pulse Resp BP BP Pulse Ox 10/28/20 15:45 89 182/95 H 10/28/20 14:56 97.9 F 87 16 184/103 H 98 10/28/20 11:17 97.5 F L 67 16 144/81 H 97 10/28/20 07:45 97.7 F 70 16 187/93 H 100 PG Care Time/CCT Total # of Minutes Spent Total Time Spent with Patient: Total time spent is greater than 50% in coordination of care (as documented) at patient's floor/unit and/or counseling patient: Coding Level of Care Code 81591 Subseq Obs Care Lvl 1 Diagnoses Muscle spasm M62.838 Stage III chronic kidney disease N18.3 Hypertension I10 Arteriosclerotic coronary artery disease I25.10
[2020-10-28] MEDS: SENNA 8.6 MG TAB PO SCH (21:44)
[2020-10-28] MEDS: traZODone HCL 50 MG TAB PO SCH (21:45)
[2020-10-29] MEDS: ACETAMINOPHEN 500 MG TAB PO SCH (05:03)
[2020-10-29] MEDS: LACTATED RINGER'S 1,000 ML IV SCH ×2 (05:05→09:53)
[2020-10-29 05:50] LABS: BUN Creatinine Ratio 18.5 (10-20); Calcium 8.1 mg/dl (8.5-10.1); Creatinine Clr Calc Pharmacy 40.8 ml/min; Est GFR (Non-African American) 36.2 ml/min; Potassium 4.3 mmol/L (3.5-5.1)
[2020-10-29 07:46] VITALS: PULSE 69; TEMP 97.7; O2SAT 98
[2020-10-29] MEDS: CHOLECALCIFEROL 1,000 UNITS 25 MCG TAB PO SCH (08:21)
[2020-10-29] MEDS: ZINC SULFATE 220 MG CAPSULE PO SCH (08:21)
[2020-10-29] MEDS: CEROVITE ADV FORMULA TAB PO SCH (08:21)
[2020-10-29] MEDS: OMEGA-3 (PURIFIED FISH OIL) 1 GM CAP PO SCH (08:21)
[2020-10-29] MEDS: ASPIRIN 81 MG ECTAB PO SCH (08:21)
[2020-10-29] MEDS: DOCUSATE SODIUM 100 MG CAP PO SCH (08:22)
[2020-10-29] MEDS: METOPROLOL TARTRATE 100 MG TAB PO SCH (08:22)
[2020-10-29] MEDS: PANTOprazole 40 MG TAB PO SCH (08:22)
[2020-10-29] MEDS: ASCORBIC ACID 500 MG TAB PO SCH (08:22)
[2020-10-29] MEDS: FINASTERIDE 5 MG TAB PO SCH (08:22)
[2020-10-29] MEDS: MAGNESIUM OXIDE 400 MG TAB PO SCH (08:22)
[2020-10-29] MEDS: DICLOFENAC SOD 1% GEL 100 GM TUBE EXT SCH (08:22)
--- NOTE | 2020-10-29 09:08 | Progress Notes ---
DATE OF SERVICE: 10/29/2020 SUBJECTIVE: A 75-year-old gentleman postop day 2 from a left knee replacement. He is doing much bet ter this morning. He has had no further episodes of muscle spasms. He just wants to get home. No c hest pain or shortness of breath. Not feeling dizzy or lightheaded. OBJECTIVE: VITAL SIGNS: Temperature 36.5. Vital signs stable. Some mild hypertension. PHYSICAL EXAMINATION: GENERAL: Shows a pleasant middle-aged male. He is sitting up in his bedside, looks comfortable. EXTREMITIES: Examination of the left knee reveals the dressing to be clean, dry and intact. He can dorsiflex and plantarflex his foot appropriately. He is neurologically intact. ASSESSMENT: A 75-year-old gentleman postoperative day 2 from a left knee replacement, doing pretty w ell. He had some episodes of spasms immediately postoperatively, but nothing over the past 24 hours and doing much better. PLAN: 1. DVT prophylaxis includes thigh-high TEDs, SCDs, and aspirin twice daily. 2. PT, OT, weightbear as tolerated. Left total knee protocol. 3. Pain control, doing okay with current pain regimen. 4. Hypertension. He has been a little hypertensive in the hospital. We will make sure he is back o n his normal meds and likely just needs some additional pain control. Medicine is following. 5. Disposition: Plan to discharge to home later this morning after therapy. Job ID: [id number]
[2020-10-29] MEDS ORDERED: TELMISARTAN 40 MG TAB PO SCH (09:15)
[2020-10-29 10:07] VITALS: BP 159/91
--- NOTE | 2020-10-29 10:28 | Hospitalist Progress Note ---
Date of Service October 29, 2020 Assessment & Plan (1) Muscle spasm: Plan: now improved, no further intervention needed (2) Stage III chronic kidney disease: Plan: Creatinine a bit higher was than baselinebut now back at baseline. avoid NSAIDs, OK to resume home meds. BMP as outpt via PCP in ~1-2wks (3) Hypertension: Plan: Asymptomatic elevations, between pain and needing to hold several of his home meds, elevation was not at all surprising. home on home meds (4) Arteriosclerotic coronary artery disease: Plan: Asymptomatic. outpt follow up Plan: medically stable for home Admission and Anticipated Discharge Date Admission Date: October 27, 2020 Subjective feeling good overall pain controlled up to going home. discussed CKD and avoiding NSAIDs Review of Systems Review of Systems: All systems reviewed & are unremarkable except as noted in HPI & below Physical Exam Physical Exam: gen aaox3 pleasant standing up with walker dressed in street clothes nad. heent nc at mmm breathing unlabored no accessory muscles good effort skin no rashes no pallor or icterus neuro no focal deficits Results & Data Results & Data ([facility]) Vital Signs (Past 12 Hours) Vital Signs Temp Pulse Pulse Resp BP BP Pulse Ox 10/29/20 10:05 97.7 F 62 69 16 159/91 H 181/100 H 98 10/29/20 07:43 97.7 F 69 16 181/100 H 98 PG Care Time/CCT Total # of Minutes Spent Total Time Spent with Patient: Total time spent is greater than 50% in coordination of care (as documented) at patient's floor/unit and/or counseling patient: Coding Level of Care Code 39850 Subseq Hosp Care Lvl 2 Diagnoses Muscle spasm M62.838 Stage III chronic kidney disease N18.3 Hypertension I10 Arteriosclerotic coronary artery disease I25.10
--- NOTE | 2020-10-29 10:30 | Billing Data ---
Date of Service October 29, 2020 Coding Level of Care Code 11872 Subseq Obs Care Lvl 2 Comment disregard 232
--- NOTE | 2020-11-01 14:06 | Discharge Summary ---
Date of Service November 01, 2020 Discharge Data Consultations 10/27/20 18:25 Consult Medical [Consult Internal Medicine] Routine Procedures Performed Operation Date: 10/27/20 07:00 Actual Procedures p Left Total Knee Replacement(Left) - Duane Giang MD Hospital Course (1) Status post total left knee replacement: This is a 75 year old patient admitted on 10/27/20 and underwent total knee arthroplasty. He tolerated the procedure well and there were no complications. Transferred to the PACU post op and later to the orthopedic floor for further care. He was given ancef for antibiotic prophylaxis. He was also given SHAGGY stockings, SCDs, and aspirin for DVT prophylaxis. Hemoglobin, hematocrit, and vital signs were monitored during his hospital stay and remained stable. He did have some hypertension post op and was followed by the hospitalist service. Did not require any blood transfusions. There were no complications during their hospital stay. By post op day #2 the patient was tolerating a regular diet, pain was reasonably controlled with oral pain medicine, and he was participating in physical therapy. On post op day #2 the patient was discharged home. He was given printed discharge instructions including prescriptions for extra strength tylenol, aspirin, and tramadol. Continue physical therapy, weight bearing as tolerated. Continue SHAGGY stockings. Follow up approximately 2 weeks post op or sooner if there are problems or concerns. Coding Level of Care Code None Diagnoses Status post total left knee replacement Z96.652
== END 2020-10-29 10:47 | disposition home or self-care (01) ==
LOC: ASU 04:53 → 3E 04:53